=== PATIENT | female | born 1950 ===

== ENCOUNTER 2019-09-27 03:22 | Inpatient (IN) ==
[2019-09-27] MEDS ORDERED: Naloxone 0.4 MG/ML INJ IVP PRN (05:16)
[2019-09-27] MEDS ORDERED: *HR* Dextrose 50 % in Water (Syg) 50 ML SYRINGE IVP PRN (05:53)
[2019-09-27] MEDS ORDERED: D5% in Water 1,000 ML IVC PRN (05:53)
[2019-09-27] MEDS ORDERED: Dextrose Gel 15 GM/37.5 ML TUBE PO PRN ×2 (05:53)
[2019-09-27] MEDS: Insulin LISPRO 300 UNITS/3 ML VIAL SQ SCH ×3 (06:12→17:41)
[2019-09-27] MEDS ORDERED: 0.9 % Sodium Chloride 1,000 ML IVC SCH (06:15)
[2019-09-27 06:32] LABS: Basophils # 0.1 K/mcL (0.0-0.2); Basophils % 0.5 %; Eosinophils # 0.1 K/mcL (0.0-0.6); Eosinophils % 0.6 %; Hematocrit 30.4 % (35.3-44.9); Hemoglobin 9.7 g/dL (11.5-15.4); Immature Granulocytes % 0.6 % (0-4); Lymphocytes # 1.2 K/mcL (0.6-4.6); Lymphocytes % 8.8 %; Mean Corpuscular HGB Conc 31.9 g/dL (31.6-35.5); Mean Corpuscular Hemoglobin 30.9 pg (28.0-33.3); Mean Corpuscular Volume 96.8 fL (83.0-100.0); Mean Platelet Volume 10.6 fL (9.4-12.4); Monocytes # 0.7 K/mcL (0.0-1.3); Monocytes % 5.1 %; Neutrophils # 11.9 K/mcL (1.6-8.9); Platelet Count 181 K/mcL (140-400); Red Blood Count 3.14 M/mcL (3.82-4.97); Red Cell Distribution Width 14.9 % (11.5-14.5); Segmented Neutrophils % 84.4 %
[2019-09-27 07:16] LABS: BUN/Creatinine Ratio 42 (6-26); Blood Urea Nitrogen 31 mg/dL (8-23); Calcium 8.5 mg/dL (8.6-10.3); Carbon Dioxide 23 mEq/L (23-29); Chloride 113 mEq/L (98-107); Glucose 151 mg/dL (70-105); Osmolality,Calculated 301 (280-300); Potassium 4.4 mEq/L (3.5-5.1); Sodium 141 mEq/L (136-145); eGFR For African Americans > 60 (> 60); eGFR For Non-African Americans > 60 (> 60)
[2019-09-27] MEDS ORDERED: Perflutren Lipid Microsphere 1.3 ML in 0.9 % Sodium Chloride 8.7 ML IVP ONE (08:39)
[2019-09-27] MEDS: Furosemide 20 MG TABLET PO SCH (09:12)
[2019-09-27] MEDS: *HR* Heparin 5,000 UNIT/ML VIAL SQ SCH ×2 (09:12→17:40)
[2019-09-27] MEDS: carvediloL 25 MG TABLET PO SCH ×2 (09:12→17:40)
[2019-09-27] MEDS: *HR* OxyCODONE/APAP 7.5/325 TABLET PO PRN ×2 (15:39→23:02)
[2019-09-28] MEDS: *HR* Heparin 5,000 UNIT/ML VIAL SQ SCH ×3 (00:05→16:23)
[2019-09-28] MEDS: Insulin LISPRO 300 UNITS/3 ML VIAL SQ SCH ×5 (00:14→21:52)
[2019-09-28 01:08] LABS: Basophils # 0.1 K/mcL (0.0-0.2); Basophils % 0.6 %; Eosinophils # 0.1 K/mcL (0.0-0.6); Eosinophils % 1.4 %; Hematocrit 27.1 % (35.3-44.9); Hemoglobin 8.6 g/dL (11.5-15.4); Immature Granulocytes % 0.6 % (0-4); Lymphocytes # 1.4 K/mcL (0.6-4.6); Lymphocytes % 14.8 %; Mean Corpuscular HGB Conc 31.7 g/dL (31.6-35.5); Mean Corpuscular Hemoglobin 30.7 pg (28.0-33.3); Mean Corpuscular Volume 96.8 fL (83.0-100.0); Mean Platelet Volume 11.1 fL (9.4-12.4); Monocytes # 0.8 K/mcL (0.0-1.3); Monocytes % 8.5 %; Neutrophils # 7.2 K/mcL (1.6-8.9); Platelet Count 139 K/mcL (140-400); Red Cell Distribution Width 14.9 % (11.5-14.5); Segmented Neutrophils % 74.1 %; White Blood Count 9.7 K/mcL (4.3-11.1)
[2019-09-28 01:30] LABS: BUN/Creatinine Ratio 38 (6-26); Blood Urea Nitrogen 26 mg/dL (8-23); Calcium 7.8 mg/dL (8.6-10.3); Carbon Dioxide 20 mEq/L (23-29); Chloride 111 mEq/L (98-107); Glucose 171 mg/dL (70-105); Osmolality,Calculated 287 (280-300); Potassium 4.1 mEq/L (3.5-5.1); Sodium 134 mEq/L (136-145); eGFR For African Americans > 60 (> 60); eGFR For Non-African Americans > 60 (> 60)
[2019-09-28] MEDS: *HR* OxyCODONE/APAP 7.5/325 TABLET PO PRN ×2 (05:34→11:59)
[2019-09-28] MEDS: Furosemide 20 MG TABLET PO SCH (09:12)
[2019-09-28] MEDS: carvediloL 25 MG TABLET PO SCH ×2 (09:13→17:02)
[2019-09-28] MEDS ORDERED: *HR* Propofol 200 MG/20 ML VIAL IVP ONE (16:59)
[2019-09-28] MEDS ORDERED: Lidocaine -MPF 2% 2 ML VIAL ONE (16:59)
[2019-09-28] MEDS ORDERED: *HR* Succinylcholine 200 MG/10 ML VIAL IVP ONE (16:59)
[2019-09-28] MEDS ORDERED: *HR* FentaNYL (PF) 100 MCG/2 ML VIAL ONE (16:59)
[2019-09-28] MEDS ORDERED: Acetaminophen IV 1,000 MG/100 ML INFUS..BTL ONE (17:47)
[2019-09-28] MEDS ORDERED: Famotidine 20 MG/2 ML VIAL ONE (17:47)
[2019-09-28] MEDS ORDERED: EPHEDrine 50 MG/ML VIAL ONE (18:09)
[2019-09-28] MEDS ORDERED: *HR* PHENYLEPHRINE 1,000 MCG/10 ML SYRINGE IVP ONE (18:09)
[2019-09-28 19:39] LABS: Hematocrit 23.7 % (35.3-44.9); Hemoglobin 7.6 g/dL (11.5-15.4)
[2019-09-28] MEDS ORDERED: Dextrose Gel 15 GM/37.5 ML TUBE PO PRN ×2 (19:59)
[2019-09-28] MEDS ORDERED: *HR* Dextrose 50 % in Water (Syg) 50 ML SYRINGE IVP PRN (19:59)
[2019-09-28] MEDS ORDERED: Naloxone 0.4 MG/ML INJ IVP PRN (19:59)
[2019-09-28] MEDS ORDERED: D5% in Water 1,000 ML IVC PRN (19:59)
[2019-09-28] MEDS ORDERED: Acetaminophen 325 MG TABLET PO PRN ×2 (20:28→23:09)
[2019-09-29] MEDS ORDERED: Insulin LISPRO 300 UNITS/3 ML VIAL SQ SCH
[2019-09-29] MEDS: *HR* OxyCODONE/APAP 7.5/325 TABLET PO PRN ×2 (01:49→19:12)
[2019-09-29] MEDS: ceFAZolin 2,000 MG in 0.9 % Sodium Chloride 100 ML IVPB SCH ×2 (01:49→10:30)
[2019-09-29] MEDS ORDERED: carvediloL 25 MG TABLET PO SCH (08:00)
[2019-09-29] MEDS: Insulin LISPRO 300 UNITS/3 ML VIAL SQ SCH ×4 (08:59→21:09)
[2019-09-29] MEDS: Furosemide 20 MG TABLET PO SCH (09:07)
[2019-09-29] MEDS: carvediloL 25 MG TABLET PO SCH ×2 (09:07→17:37)
[2019-09-29 09:35] LABS: Hematocrit 24.4 % (35.3-44.9); Hemoglobin 7.8 g/dL (11.5-15.4); Mean Corpuscular Hemoglobin 31.1 pg (28.0-33.3); Mean Corpuscular Volume 97.2 fL (83.0-100.0); Mean Platelet Volume 11.6 fL (9.4-12.4); Platelet Count 179 K/mcL (140-400); Red Blood Count 2.51 M/mcL (3.82-4.97); Red Cell Distribution Width 14.7 % (11.5-14.5)
[2019-09-29 09:39] LABS: White Blood Count 15.2 K/mcL (4.3-11.1)
[2019-09-29 09:56] LABS: BUN/Creatinine Ratio 27 (6-26); Blood Urea Nitrogen 20 mg/dL (8-23); Calcium 8.2 mg/dL (8.6-10.3); Carbon Dioxide 21 mEq/L (23-29); Chloride 107 mEq/L (98-107); Glucose 224 mg/dL (70-105); Osmolality,Calculated 286 (280-300); Potassium 4.3 mEq/L (3.5-5.1); Sodium 133 mEq/L (136-145); eGFR For African Americans > 60 (> 60); eGFR For Non-African Americans > 60 (> 60)
[2019-09-29] MEDS: Aspirin Enteric Coated 81 MG Tablet PO SCH (17:37)
[2019-09-30 04:47] LABS: Hematocrit 17.6 % (35.3-44.9)
[2019-09-30 04:51] LABS: Hemoglobin 5.8 g/dL (11.5-15.4)
[2019-09-30] MEDS ORDERED: 0.9 % Sodium Chloride 250 ML ONE (06:25)
[2019-09-30] MEDS: *HR* OxyCODONE/APAP 7.5/325 TABLET PO PRN ×2 (06:49→16:51)
[2019-09-30] MEDS: carvediloL 25 MG TABLET PO SCH ×2 (08:06→15:53)
[2019-09-30] MEDS: Furosemide 20 MG TABLET PO SCH (08:09)
[2019-09-30] MEDS: Aspirin Enteric Coated 81 MG Tablet PO SCH (08:09)
[2019-09-30] MEDS: Insulin LISPRO 300 UNITS/3 ML VIAL SQ SCH ×4 (08:18→20:27)
[2019-09-30 13:04] LABS: Hematocrit 23.5 % (35.3-44.9)
[2019-09-30 13:13] LABS: Hemoglobin 7.6 g/dL (11.5-15.4)
[2019-10-01 02:10] LABS: Hemoglobin 6.9 g/dL (11.5-15.4); Mean Corpuscular HGB Conc 32.9 g/dL (31.6-35.5); Mean Corpuscular Hemoglobin 30.8 pg (28.0-33.3); Mean Corpuscular Volume 93.8 fL (83.0-100.0); Mean Platelet Volume 10.4 fL (9.4-12.4); Platelet Count 162 K/mcL (140-400); Red Blood Count 2.24 M/mcL (3.82-4.97); Red Cell Distribution Width 16.1 % (11.5-14.5); White Blood Count 10.2 K/mcL (4.3-11.1)
[2019-10-01] MEDS: carvediloL 25 MG TABLET PO SCH ×2 (08:16→16:16)
[2019-10-01] MEDS: *HR* OxyCODONE/APAP 7.5/325 TABLET PO PRN ×2 (08:16→23:32)
[2019-10-01] MEDS: Furosemide 20 MG TABLET PO SCH (08:16)
[2019-10-01] MEDS: Aspirin Enteric Coated 81 MG Tablet PO SCH (08:16)
[2019-10-01] MEDS: Insulin LISPRO 300 UNITS/3 ML VIAL SQ SCH ×4 (08:17→20:23)
[2019-10-01] MEDS ORDERED: 0.9 % Sodium Chloride 250 ML ONE (13:02)
[2019-10-02 06:44] LABS: Hematocrit 26.4 % (35.3-44.9)
[2019-10-02 06:47] LABS: Hemoglobin 8.6 g/dL (11.5-15.4)
[2019-10-02] MEDS: Insulin LISPRO 300 UNITS/3 ML VIAL SQ SCH ×4 (07:39→20:09)
[2019-10-02] MEDS: Aspirin Enteric Coated 81 MG Tablet PO SCH (07:50)
[2019-10-02] MEDS: carvediloL 25 MG TABLET PO SCH ×2 (07:51→16:41)
[2019-10-02] MEDS: Furosemide 20 MG TABLET PO SCH (07:51)
[2019-10-02] MEDS: *HR* OxyCODONE/APAP 7.5/325 TABLET PO PRN ×3 (07:54→23:00)
[2019-10-03] MEDS: *HR* OxyCODONE/APAP 7.5/325 TABLET PO PRN (05:51)
[2019-10-03] MEDS: Furosemide 20 MG TABLET PO SCH (07:59)
[2019-10-03] MEDS: Insulin LISPRO 300 UNITS/3 ML VIAL SQ SCH ×2 (07:59→11:48)
[2019-10-03] MEDS: Aspirin Enteric Coated 81 MG Tablet PO SCH (07:59)
[2019-10-03] MEDS: carvediloL 25 MG TABLET PO SCH (07:59)
[2019-10-03] MEDS ORDERED: *HR* HYDROcodone/Acet 5/325 mg TABLET PO PRN (08:14)
[2019-10-03 10:59] VITALS: BP 108/62
== END 2019-10-03 15:15 | DRG 481 ==
LOC: 3NENU → SUATTDRO 05:29
PROVIDERS: ADMIT Student in an Organized Health Care Education/Training Program; ATTEND Internal Medicine